=== PATIENT | male | born 1995 | race American Indian/Alaskan Native ===

== ENCOUNTER 2018-07-27 05:53 | Emergency (ER) | payer OTHER ==
[2018-07-27] MEDS ORDERED: NORCO 5/325 PO ONE (06:57)
[2018-07-27] MEDS ORDERED: XYLOCAINE 1% 20 mL ONE (07:03)
[2018-07-27] MEDS ORDERED: BOOSTRIX IM ONE (07:32)
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
--- NOTE | 2018-07-27 07:50 | XRay Report ---
PROCEDURE: XR HUMERUS 2+V RT TECHNIQUE: Right humerus, 2 views HISTORY: trauma COMPARISON: None FINDINGS: The humerus appears intact. No fracture identified. No focal bony lesions seen. IMPRESSION: There is no acute abnormality identified. This document is electronically signed by Alena Zavaleta MD., July 27 2018 07:48:58 AM ET
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
[2018-07-27] MEDS ORDERED: XYLOCAINE 1% 20 mL INFILTRATI ONE (08:45)
[2018-07-27 08:58] VITALS: BP 110/67
== END 2018-07-27 08:58 | disposition home or self-care (01) ==
LOC: ED 05:53
DX: S81.812A Laceration without foreign body, left lower leg, initial encounter (principal); S61.213A Laceration without foreign body of left middle finger without damage to nail, initial encounter; S61.411A Laceration without foreign body of right hand, initial encounter; Z79.899 Other long term (current) drug therapy; W26.0XXA Contact with knife, initial encounter; Y93.89 Activity, other specified; Y92.89 Other specified places as the place of occurrence of the external cause; Y99.8 Other external cause status
CPT/HCPCS: 90471; 90715; 99284

== ENCOUNTER 2018-08-05 14:27 | Emergency (ER) | payer SELFPAY ==
--- NOTE | 2018-08-05 15:02 | Emergency Department Report ---
Suture/Staple Removal - [facility] Chief Complaint: Laceration/Recheck/Suture Stated Complaint: SUTURE REMOVAL Time Seen by Provider: 08/05/18 14:56 When Sutures or Lalito Placed: 8-10 Days Ago Wound Location: mutiple sites ED Review of Systems ROS: Stated complaint: SUTURE REMOVAL Other details as noted in HPI Constitutional: denies: chills, fever Eyes: denies: eye pain, eye discharge, vision change ENT: denies: ear pain, throat pain Respiratory: denies: cough, shortness of breath, wheezing Cardiovascular: denies: chest pain, palpitations Endocrine: no symptoms reported Gastrointestinal: denies: abdominal pain, nausea, diarrhea Genitourinary: denies: urgency, dysuria Musculoskeletal: denies: back pain, joint swelling, arthralgia Skin: denies: rash, lesions Neurological: denies: headache, weakness, paresthesias Psychiatric: denies: anxiety, depression Hematological/Lymphatic: denies: easy bleeding, easy bruising ED Past Medical Hx - Past Medical History Previous Medical History?: No - Surgical History Past Surgical History?: No - Social History Smoking Status: Never Smoker Substance Use Type: None - Medications Home Medications: Home Medications Medication Instructions Recorded Confirmed Last Taken Type HYDROcodone/APAP 5-325 [[place] 1 each PO Q6HR PRN #5 tablet 07/27/18 Unknown Rx 5/325] Suture Removal Exam - Exam General: Vital signs noted. No distress. Alert and acting appropriately. Wound: No Pathologic Erythema, No Tenderness, No Drainage, No Pus, No Wound Dehiscence Other Systems: All other systems reviewed and are unremarkable. ED Course - Reevaluation(s) Reevaluation #1: 08/05/18 14:58 Patient is speaking in full sentences with no signs of distress noted. ED Recheck MDM - Medical Decision Making Total of 14 lalito has been removed from 3 different sites. Patient tolerated well. no cellulites. No deshince. Normal well healing noted. Patient was instructed to Follow-up with a primary care doctor in 3-5 days or if symptoms worsen and continue return to emergency room as soon as possible. At time of discharge, the patient does not seem toxic or ill in appearance. No acute signs of distress noted. Patient agrees to discharge treatment plan of care. No further questions noted by the patient. Critical care attestation.: If time is entered above; I have spent that time in minutes in the direct care of this critically ill patient, excluding procedure time. ED Disposition Clinical Impression: Removal of staple Disposition: DC-01 TO HOME OR SELFCARE Is pt being admited?: No Does the pt Need Aspirin: No Condition: Stable Additional Instructions: Follow-up with a primary care doctor in 3-5 days or if symptoms worsen and continue return to emergency room as soon as possible. Referrals: [facility]IMARY [facility] [Referring] - 3-5 Days MELODY WILLIS MD [Staff Physician] - 3-5 Days [facility] [Outside] - 3-5 Days [facility] [Outside] - 3-5 Days Forms: Work/School Release Form(ED)
[2018-08-05 15:03] VITALS: BP 122/72
== END 2018-08-05 15:28 | disposition home or self-care (01) ==
LOC: ED 14:27
DX: T14.8XXD Other injury of unspecified body region, subsequent encounter (principal); Z48.02 Encounter for removal of sutures